=== PATIENT | female | born 1990 | race Hispanic/Latino ===

== ENCOUNTER 2022-04-01 11:54 | Observation (INO) | payer OTHER ==
[2022-04-01 11:58] VITALS: BP 138/92
[2022-04-01 13:08] LABS: APPEARANCE,URINE CLEAR (CLEAR); BILIRUBIN,URINE NEGATIVE (NEGATIVE); COLOR,URINE YELLOW (YELLOW); GLUCOSE, URINE (UA) NEGATIVE (NEGATIVE); KETONES,URINE 5 mg/dL (NEGATIVE); LEUKOCYTE ESTERASE ,URINE TRACE (NEGATIVE); NITRATE,URINE NEGATIVE (NEGATIVE); OCCULT BLOOD,URINE NEGATIVE (NEGATIVE); PROTEIN,URINE NEGATIVE (NEGATIVE); UROBILINOGEN,URINE 0.2 mg/dL (0.2-1.0)
[2022-04-01 13:16] LABS: BACTERIA,URINE Rare /HPF (None Seen); MUCUS,URINE Few LPF (None Seen); RBC,URINE 0-1 /HPF (0-1); SQUAMOUS EPITHELIAL CELL,UR Rare /HPF (0-2); WBC,URINE 0-1 /HPF (0-1)
[2022-04-01 13:19] LABS: AMPHET/METH SCREEN,URINE NEGATIVE (NEGATIVE); BARBITURATE SCREEN, URINE NEGATIVE (NEGATIVE); BENZODIAZEPINES SCREEN,URINE NEGATIVE (NEGATIVE); CANNABINOID SCREEN,URINE NEGATIVE (NEGATIVE); COCAINE SCREEN,URINE NEGATIVE (NEGATIVE); OPIATE SCREEN,URINE NEGATIVE (NEGATIVE); PHENCYCLIDINE SCREEN,URINE NEGATIVE (NEGATIVE)
== END 2022-04-01 13:30 | disposition home or self-care (01) ==
LOC: EDH 11:54 → LDH 12:18
PROVIDERS: ADMIT Internal Medicine; ATTEND Internal Medicine
DX: O26.892 Other specified pregnancy related conditions, second trimester (principal); R53.1 Weakness; Z3A.22 22 weeks gestation of pregnancy
CPT/HCPCS: 80305; 81001; G0378

== ENCOUNTER 2022-07-27 22:59 | Inpatient (IN) | payer OTHER ==
[~2022-07-27] VITALS: Ht 160 cm; Wt 90.3 kg
[2022-07-27] MEDS ORDERED: EPHEDRINE SULFATE 50 MG/ML AMPULE IVP PRN (23:30)
[2022-07-27] MEDS ORDERED: PROMETHAZINE HCL 25 MG/ML 1ML AMPULE IM PRN (23:30)
[2022-07-27] MEDS ORDERED: NALOXONE HCL 0.4 MG/1 ML ML IV PRN (23:30)
[2022-07-27] MEDS ORDERED: LACTATED RINGERS 500 ML 500 ML IV PRN (23:30)
[2022-07-27] MEDS ORDERED: MEPERIDINE-PF 50 MG/ML SYG IVP PRN (23:30)
[2022-07-27] MEDS ORDERED: ROPIVACAINE 0.2% 100ML VIAL 100 ML EP SCH (23:30)
[2022-07-27 23:47] LABS: APPEARANCE,URINE CLEAR (CLEAR); BILIRUBIN,URINE NEGATIVE (NEGATIVE); COLOR,URINE YELLOW (YELLOW); GLUCOSE, URINE (UA) NEGATIVE (NEGATIVE); KETONES,URINE NEGATIVE (NEGATIVE); LEUKOCYTE ESTERASE ,URINE NEGATIVE Leu/uL (NEGATIVE); NITRATE,URINE NEGATIVE (NEGATIVE); OCCULT BLOOD,URINE NEGATIVE (NEGATIVE); PH,URINE 5.5 (5.0-8.0); PROTEIN,URINE 20 mg/dL (NEGATIVE); UROBILINOGEN,URINE 0.2 mg/dL (0.2-1.0)
[2022-07-27 23:56] LABS: AMPHET/METH SCREEN,URINE NEGATIVE (NEGATIVE); BARBITURATE SCREEN, URINE NEGATIVE (NEGATIVE); BENZODIAZEPINES SCREEN,URINE NEGATIVE (NEGATIVE); CANNABINOID SCREEN,URINE NEGATIVE (NEGATIVE); COCAINE SCREEN,URINE NEGATIVE (NEGATIVE); OPIATE SCREEN,URINE NEGATIVE (NEGATIVE); PHENCYCLIDINE SCREEN,URINE NEGATIVE (NEGATIVE)
[2022-07-28 00:16] LABS: HEMATOCRIT 31.5 % (36-48); MEAN CORPUSCULAR HEMOGLOBIN 24.9 pg (27.0-33.0); MEAN CORPUSCULAR HGB CONC 32.4 g/dL (32.0-36.0); PLATELET COUNT (AUTO) 354 K/uL (130-400); RED BLOOD CELL COUNT(AUTO) 4.09 MIL/uL (4.00-5.50); RED CELL DISTRIBUTION WIDTH 16.7 % (11.0-15.5); WHITE BLOOD COUNT (AUTO) 10.5 K/uL (4.8-10.8)
[2022-07-28 00:51] VITALS: BP 116/86
[2022-07-28] MEDS ORDERED: FERR-82 PO (01:01)
[2022-07-28] MEDS ORDERED: PREN-196 PO (01:01)
[2022-07-28] MEDS ORDERED: OXYTOCIN-LR 20 UNITS/1000 ML 1,000 ML IV SCH (04:00)
[2022-07-28] MEDS: LACTATED RINGERS 1000ML 1,000 ML IV PRN ×3 (05:42→15:33)
[2022-07-28] MEDS: OXYTOCIN-LR 20 UNITS/1000 ML 1,000 ML IV SCH ×4 (05:44→23:32)
[2022-07-28] MEDS ORDERED: FENTANYL CITRATE PF 50 MCG/1 ML 2ML VIAL ONE (13:04)
[2022-07-28] MEDS ORDERED: METHYLERGONOVINE MALEATE 0.2 MG/1 ML ML ONE (15:53)
[2022-07-28] MEDS ORDERED: MISOPROSTOL 200 MCG TABLET ONE (15:53)
[2022-07-28] MEDS ORDERED: LIDOCAINE HCL 1% 20 ML VIAL ONE (15:53)
[2022-07-28] MEDS ORDERED: WITCH HAZEL 1 PAD TP PRN (17:30)
[2022-07-28] MEDS ORDERED: ACETAMINOPHEN 325 MG TAB PO PRN (17:30)
[2022-07-28] MEDS ORDERED: MEASLES/MUMPS/RUBELLA VACCINE, LIVE 0.5 ML/VIAL SQ PRN (17:30)
[2022-07-28] MEDS ORDERED: LANOLIN 30GM OINTMENT TP PRN (17:30)
[2022-07-28] MEDS ORDERED: DIPH,PERTUSS(ACELL),TET VAC/PF 0.5 ML VIAL IM PRN (17:30)
[2022-07-28] MEDS ORDERED: BENZOCAINE/LANOLIN/ALOE VERA 60 ML AEROSOL TP PRN (17:30)
[2022-07-28] MEDS ORDERED: ACETAMINOPHEN WITH CODEINE 1 TAB TAB PO PRN (17:30)
[2022-07-28 19:18] VITALS: BP 140/78
[2022-07-28] MEDS: DOCUSATE SODIUM 100 MG CAP PO SCH (19:57)
[2022-07-28] MEDS: IBUPROFEN 600 MG TABLET PO PRN (19:58)
[2022-07-28 22:58] VITALS: BP 125/77
[2022-07-29 03:10] VITALS: BP 112/66
[2022-07-29 06:43] LABS: HEMATOCRIT 27.8 % (36-48); MEAN CORPUSCULAR HEMOGLOBIN 24.4 pg (27.0-33.0); MEAN CORPUSCULAR HGB CONC 31.3 g/dL (32.0-36.0); MEAN CORPUSCULAR VOLUME 78.1 fL (79-99); RED BLOOD CELL COUNT(AUTO) 3.56 MIL/uL (4.00-5.50); RED CELL DISTRIBUTION WIDTH 16.5 % (11.0-15.5); WHITE BLOOD COUNT (AUTO) 10.9 K/uL (4.8-10.8)
[2022-07-29 07:38] VITALS: BP 123/74
[2022-07-29] MEDS: DOCUSATE SODIUM 100 MG CAP PO SCH (08:33)
[2022-07-29] MEDS: IBUPROFEN 600 MG TABLET PO PRN (08:34)
[2022-07-29 11:13] VITALS: BP 126/81
[2022-07-29] MEDS ORDERED: IBUP-2070 PO (14:15)
[2022-07-29 16:00] VITALS: BP 131/80
== END 2022-07-29 16:35 | disposition home or self-care (01) | DRG 807 ==
LOC: LDH 22:59 → WSH 07-28 19:16
PROVIDERS: ADMIT Internal Medicine; ATTEND Internal Medicine
PROC: 10E0XZZ Delivery of Products of Conception, External Approach (ICD-10-PCS; principal; 2022-07-28)
PROC: 0HQ9XZZ Repair Perineum Skin, External Approach (ICD-10-PCS; 2022-07-28)
PROC: 3E0R3BZ Introduction of Anesthetic Agent into Spinal Canal, Percutaneous Approach (ICD-10-PCS; 2022-07-28)
PROC: 00HU33Z Insertion of Infusion Device into Spinal Canal, Percutaneous Approach (ICD-10-PCS; 2022-07-28)
DX: O70.0 First degree perineal laceration during delivery (principal); Z37.0 Single live birth; Z3A.38 38 weeks gestation of pregnancy
CPT/HCPCS: 36415; 80305; 81003; 82947; 85027; 86592; 86850; 86900; 86901; 87340; A4314; A4351; G0378; J2175; J2210; J2550; J2590; J2795; J3010; J7120